=== PATIENT | male | born 1960 | race Caucasian/White ===

== ENCOUNTER 2018-12-21 14:33 | Inpatient (IN) ==
[2018-12-21] MEDS ORDERED: methylPREDNISolone 125 MG/2 ML VIAL IVP ONE (14:55)
[2018-12-21] MEDS ORDERED: Ipratropium/Albuterol Neb 3 ML IH ONE (14:55)
--- NOTE | 2018-12-21 15:09 | Emergency Department Note ---
Disposition Clinical Impression: COPD exacerbation Disposition: Still a Patient Referrals: NONE,PCP [Primary Care Provider] - General Adult HPI - General Chief complaint: ED Shortness of Breath/Dyspnea Stated complaint: SOB Time Seen by Provider: 12/21/18 14:43 Source: patient Limitations: no limitations Nursing Notes Reviewed: Yes Vital Signs Reviewed: Yes - History of Present Illness HPI Narrative: Attestation note I examined this patient and my medical decision-making was reviewed with the Resident Physician/UNDERBASTER/PA. I agree with the documented findings, disposition and treatment plan as described except to the extent set forth below Patient seen with emergency medicine resident Dr. Isidro Jones, please see copy of his note for details of this patient encounter Briefly 58-year-old male smoker COPD comes in with cough fever or shortness of breath has expiratory wheezes cell tachycardic low-grade fever patient was getting sepsis protocol. Triple DuoNeb as well EKG. Chest x-rays as well as other tests. Providing 45 minutes critical care service this patient. Disposition pending Pain Scale: 0 - Related Data Home Medications Medication Instructions Recorded Confirmed Aspirin [Adult Low Dose Aspirin EC] 81 mg PO DAILY 11/06/15 11/06/15 Carvedilol [Coreg] 6.25 mg PO BIDWM 11/06/15 11/06/15 Ranitidine HCl [Zantac] 150 mg PO BID 11/06/15 11/06/15 Simvastatin [Zocor] 20 mg PO HS 11/06/15 11/06/15 amLODIPine [Norvasc] 5 mg PO DAILY 11/06/15 11/06/15 Previous Rx's Medication Instructions Recorded Albuterol Sulfate [Proair 90 mcg IH Q4HR PRN #15 aer.[email or web address] 11/07/15 Respiclick] Budesonide/Formoterol 160/4.5 2 puff IH BIDR #1 hfa.aer.ad 11/07/15 [Symbicort 160/4.5] predniSONE [PredniSONE] 40 mg PO DAILY #3 tablet 11/07/15 Diclofenac Sodium [Voltaren] 50 mg PO Q8HR #30 tablet. 03/04/17 HYDROcodone/Acet 10/325 mg [[place] 1 tab PO Q6HR PRN #20 tab 03/04/17 10-325 mg] Allergies Allergy/AdvReac Type Severity Reaction Status Date / Time No Known Allergies Allergy Verified 03/04/17 03:17 Past Medical History - Past Medical History Medical history: Reports: aortic aneurysm, CHF, COPD, hyperlipidemia, hypertension, valvular heart disease Surgical history: Reports: coronary bypass (CABG), heart valve replacement, pacemaker/AICD Psychiatric history: Reports: no psych history - Social History Smoking Status: Current every day smoker Smokeless Tobacco Status: No Alcohol use: Reports: heavy, recent Drug use: Reports: marijuana Physical Exam - General Limitations: no limitations General appearance: alert, in no apparent distress Course Vital Signs Temperature 98.1 F 12/21/18 14:42 Pulse Rate 86 12/21/18 14:42 Respiratory Rate 28 12/21/18 14:42 Blood Pressure 164/82 12/21/18 14:42 O2 Sat by Pulse Oximetry 90 12/21/18 14:42 Temperature 98.1 F 12/21/18 14:42 Pulse Rate 86 12/21/18 14:42 Respiratory Rate 28 12/21/18 14:42 Blood Pressure 164/82 12/21/18 14:42 O2 Sat by Pulse Oximetry 94 12/21/18 14:59 Oxygen Delivery Oxygen Delivery Room Air
--- NOTE | 2018-12-21 15:11 | Emergency Department Note ---
Disposition Clinical Impression: COPD exacerbation Disposition: Admitted As Inpatient Condition: Fair Referrals: NONE,PCP [Non-Partnered Physician] - Forms: ED Satisfaction Letter Time of Disposition: 17:18 SOB HPI - General Chief Complaint: ED Shortness of Breath/Dyspnea Stated Complaint: SOB Time Seen by Provider: 12/21/18 14:43 Source: patient Mode of arrival: ambulatory Limitations: no limitations Nursing Notes Reviewed: Yes Vital Signs Reviewed: Yes - History of Present Illness 58-year-old male presents to the emergency department with history of COPD as well as open heart surgery and catheterization here for shortness of breath. Patient said this does not feel like his previous heart attacks is only feels a shortness of breath exacerbation. Said he had similar episode approximately 2 weeks ago he is given steroids as well as did breathing treatments felt better. He said this is returned is been no fevers or coughs recently. He is not having any chest pain. Just feels like he is very weak he did try albuterol treatments at home and has had no relief at this time. Otherwise no complaints including fevers, chills, nausea, vomiting, headache, blurry vision, neck pain, back pain, chest pain, abdominal pain, changes in bowel moves come pain with urination pain or tingling going down the arms or legs or generalized weakness. - Related Data Home Medications Medication Instructions Recorded Confirmed Aspirin [Adult Low Dose Aspirin EC] 81 mg PO DAILY 11/06/15 11/06/15 Carvedilol [Coreg] 6.25 mg PO BIDWM 11/06/15 11/06/15 Ranitidine HCl [Zantac] 150 mg PO BID 11/06/15 11/06/15 Simvastatin [Zocor] 20 mg PO HS 11/06/15 11/06/15 amLODIPine [Norvasc] 5 mg PO DAILY 11/06/15 11/06/15 Previous Rx's Medication Instructions Recorded Albuterol Sulfate [Proair 90 mcg IH Q4HR PRN #15 aer.[email or web address] 11/07/15 Respiclick] Budesonide/Formoterol 160/4.5 2 puff IH BIDR #1 hfa.aer.ad 11/07/15 [Symbicort 160/4.5] predniSONE [PredniSONE] 40 mg PO DAILY #3 tablet 11/07/15 Diclofenac Sodium [Voltaren] 50 mg PO Q8HR #30 tablet. 03/04/17 HYDROcodone/Acet 10/325 mg [[place] 1 tab PO Q6HR PRN #20 tab 03/04/17 10-325 mg] Allergies Allergy/AdvReac Type Severity Reaction Status Date / Time No Known Allergies Allergy Verified 03/04/17 03:17 All systems ED: reviewed and negative except as stated. Review of Systems: As Per HPI Past Medical History - Past Medical History Attestation: Yes The following information was validated with the patient. Source: patient Medical history: Reports: aortic aneurysm, CHF, COPD, hyperlipidemia, hyperte nsion, valvular heart disease Surgical history: Reports: coronary bypass (CABG), heart valve replacement, pacemaker/AICD Psychiatric history: Reports: no psych history - Social History Smoking Status: Current every day smoker Smokeless Tobacco Status: No Alcohol use: Reports: heavy, recent Drug use: Reports: marijuana Physical Exam - General Limitations: no limitations General appearance: alert, in no apparent distress - Head Head exam: atraumatic, normocephalic, normal inspection - Eye Eye exam: Present: normal appearance, PERRL, EOMI - ENT ENT exam: normal exam, normal oropharynx, mucous membranes moist - Neck Neck exam: Present: normal inspection, full ROM, trachea midline - Chest Chest inspection: Present: normal inspection, symmetric chest wall rise - Respiratory Respiratory exam: Present: wheezes, prolonged expiratory phase. Absent: respiratory distress, stridor, accessory muscle use - Cardiovascular Cardiovascular exam: Present: regular rate, normal rhythm, normal heart sounds - Abdominal Exam Abdominal exam: Present: soft, Non-Tender. Absent: tenderness, distention, guarding, rebound, rigidity - Extremities Exam Extremities exam: Present: normal inspection, full ROM. Absent: tenderness, pedal edema - Expanded Lower Extremity Exam Neurovascular/Tendon exam: Absent: motor deficit, sensory deficit, tendon deficit - Back Exam Back exam: Present: normal inspection, full ROM. Absent: tenderness, CVA tenderness (R), CVA tenderness (L) - Neurological Exam Neurological exam: Present: alert, oriented X3 - Skin Skin exam: Present: warm, dry, intact, normal color Course Course Narrative: We have basic labs including CBC, BMP we will also get 2 view chest x-ray we will give patient triple DuoNeb treatment as well as Solu-Medrol. We will see troponin EKG. Patient care this plan. Disposition is pending results. Patient does not follow with pulmonology this time primary care physician manages COPD Vital Signs Temperature 98.1 F 12/21/18 14:42 Pulse Rate 86 12/21/18 14:42 Respiratory Rate 28 12/21/18 14:42 Blood Pressure 164/82 12/21/18 14:42 O2 Sat by Pulse Oximetry 90 12/21/18 14:42 Temperature 98.1 F 12/21/18 14:42 Pulse Rate 81 12/21/18 16:00 Respiratory Rate 22 12/21/18 16:00 Blood Pressure 137/77 12/21/18 16:00 O2 Sat by Pulse Oximetry 94 12/21/18 16:00 Oxygen Delivery Oxygen Delivery Aerosol Mask Shortness of Breath/Dyspnea - MDM Narrative Medical decision making narrative: Patient's chest x-ray did not show any acute findings labs did not show any acute findings. DuoNeb did help with his breathing but he is still hypoxic. We did do a walk test on the patient where he just walked approximate 10 feet and was short of breath and his pulse ox dropped down to 84%. I think patient may be on the verge of needing oxygen at home. Patient did receive Solu-Medrol as well as triple DuoNeb treatment here. Patient needs to be admitted to the hospitalist and family does agree. I spoke with the hospitalist Dr. Bradley who agreed to admit the patient to their service. Patient admitted in stable condition. Chest X-Ray 12/21/18 14:55 IMPRESSION: No acute process. D/ / Aldo Painting MD / Aldo Painting MD Interpreting Provider: Aldo Painting MD - Medical Records Medical records reviewed: Yes I reviewed the patient's medical records. - Lab Data Lab results reviewed: Yes I reviewed the patient's lab results. Result diagrams: 12/21/18 15:02 12/21/18 15:02 Lab Results 12/21/18 12/21/18 12/21/18 Range/Units 15:02 15:02 15:02 WBC 11.6 H (4.3-11.1) K/mcL RBC 5.16 (4.19-5.50) M/mcL Hgb 16.1 (12.9-16.9) g/dL Hct 47.3 (37.5-50.1) % MCV 91.7 (83.0-100.0) fL MCH 31.2 (28.0-33.3) pg MCHC 34.0 (31.6-35.5) g/dL RDW 12.9 (11.5-14.5) % Plt Count 183 (140-400) K/mcL MPV 8.9 L (9.4-12.4) fL Immature Gran % 0.3 (0-4) % Seg Neutrophils % 70.4 % Lymphocytes % 20.2 % Monocytes % 5.8 % Eosinophils % 2.5 % Basophils % 0.8 % Neutrophils # 8.2 (1.6-8.9) K/mcL Lymphocytes # 2.4 (0.6-4.6) K/mcL Monocytes # 0.7 (0.0-1.3) K/mcL Eosinophils # 0.3 (0.0-0.6) K/mcL Basophils # 0.1 (0.0-0.2) K/mcL Sodium 137 (136-145) mEq/L Potassium 3.9 (3.5-5.1) mEq/L Chloride 104 (98-107) mEq/L Carbon Dioxide 24 (23-29) mEq/L BUN 9 (6-20) mg/dL Creatinine 0.81 (0.70-1.30) mg/dL Est GFR ( Amer) > 60 (> 60) Est GFR (Non-Af Amer) > 60 (> 60) BUN/Creatinine Ratio 11 (6-26) Glucose 147 H (70-105) mg/dL Calculated Osmolality 285 (280-300) Lactic Acid (0.5-2.2) mmol/L Calcium 9.3 (8.6-10.3) mg/dL Troponin I < 0.03 (< 0.04) ng/mL B-Natriuretic Peptide 106 H (Less than 100) pg/mL 12/21/18 Range/Units 15:20 WBC (4.3-11.1) K/mcL RBC (4.19-5.50) M/mcL Hgb (12.9-16.9) g/dL Hct (37.5-50.1) % MCV (83.0-100.0) fL MCH (28.0-33.3) pg MCHC (31.6-35.5) g/dL RDW (11.5-14.5) % Plt Count (140-400) K/mcL MPV (9.4-12.4) fL Immature Gran % (0-4) % Seg Neutrophils % % Lymphocytes % % Monocytes % % Eosinophils % % Basophils % % Neutrophils # (1.6-8.9) K/mcL Lymphocytes # (0.6-4.6) K/mcL Monocytes # (0.0-1.3) K/mcL Eosinophils # (0.0-0.6) K/mcL Basophils # (0.0-0.2) K/mcL Sodium (136-145) mEq/L Potassium (3.5-5.1) mEq/L Chloride (98-107) mEq/L Carbon Dioxide (23-29) mEq/L BUN (6-20) mg/dL Creatinine (0.70-1.30) mg/dL Est GFR ( Amer) (> 60) Est GFR (Non-Af Amer) (> 60) BUN/Creatinine Ratio (6-26) Glucose (70-105) mg/dL Calculated Osmolality (280-300) Lactic Acid 1.4 (0.5-2.2) mmol/L Calcium (8.6-10.3) mg/dL Troponin I (< 0.04) ng/mL B-Natriuretic Peptide (Less than 100) pg/mL - Radiology Data Radiology results reviewed: Yes I reviewed the patient's radiology results. - EKG Data EKG attestation: Yes I reviewed and interpreted this EKG. EKG results narrative: EKG done at 1456 review myself and attending shows sinus the paced rhythm at a rate of 85, ME able 196, QRS 111, QTC 554. No acute ST changes no acute T-wave changes no signs of ischemia. No signs of hypertrophy, harsh and, heart block. No debris. Abuse undergo/HOCM. Otherwise unchanged EKG when compared with old one done 11/06/15
[2018-12-21 15:12] LABS: Basophils # 0.1 K/mcL (0.0-0.2); Basophils % 0.8 %; Eosinophils # 0.3 K/mcL (0.0-0.6); Eosinophils % 2.5 %; Hematocrit 47.3 % (37.5-50.1); Hemoglobin 16.1 g/dL (12.9-16.9); Immature Granulocytes % 0.3 % (0-4); Lymphocytes # 2.4 K/mcL (0.6-4.6); Lymphocytes % 20.2 %; Mean Corpuscular Hemoglobin 31.2 pg (28.0-33.3); Mean Corpuscular Volume 91.7 fL (83.0-100.0); Mean Platelet Volume 8.9 fL (9.4-12.4); Monocytes # 0.7 K/mcL (0.0-1.3); Monocytes % 5.8 %; Neutrophils # 8.2 K/mcL (1.6-8.9); Platelet Count 183 K/mcL (140-400); Red Blood Count 5.16 M/mcL (4.19-5.50); Red Cell Distribution Width 12.9 % (11.5-14.5); Segmented Neutrophils % 70.4 %
[2018-12-21 15:36] LABS: BUN/Creatinine Ratio 11 (6-26); Blood Urea Nitrogen 9 mg/dL (6-20); Calcium 9.3 mg/dL (8.6-10.3); Carbon Dioxide 24 mEq/L (23-29); Chloride 104 mEq/L (98-107); Glucose 147 mg/dL (70-105); Osmolality,Calculated 285 (280-300); Potassium 3.9 mEq/L (3.5-5.1); Sodium 137 mEq/L (136-145); eGFR For Non-African Americans > 60 (> 60)
[2018-12-21 15:37] LABS: Troponin I < 0.03 ng/mL (< 0.04)
--- NOTE | 2018-12-21 17:44 | Internal Med History&Physical ---
<Richard Nelson - Last Filed: 12/21/18 17:41> Date of Encounter: 12/21/18 Time of Encounter: 17:42 Internal Medicine - H&P: HPI Chief complaint: Shortness of breath Admitted From: Emergency Dept Plans for Post Hospital Care: Home History of present illness: Mr. Phipps is a 58 year old male with history of coronary artery disease, aortic aneurysm and COPD presents with chief complaint of shortness of breath. Patient reports on December 01 he was diagnosed with COPD exacerbation by his PCP and given azithromycin as well as a steroid taper for 11 days. His symptoms of shortness of breath, cough improved while on this regimen however once he completed a history taper his shortness of breath worsened. He reports today his oxygen at home was 86 6%. He has been having increasing cough, sputum production. He does report being around grandchildren that have had a upper respiratory infection recently. He denies fevers, chills, headache, chest pain, palpitations, nausea, vomiting, diarrhea, dysuria, lower extremity pain he does report dizziness when his oxygen saturation decreases. Patient does not use oxygen at home. 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 His only COPD treatment at home as as needed rescue albuterol inhaler. Past Med Surg Social Fam HX - Past Medical History Medical history: aortic aneurysm, CHF, COPD, hyperlipidemia, hypertension, valvular heart disease Additional medical history: pacer Psychiatric history: no psych history - Past Surgical History Surgical History: coronary bypass (CABG), heart valve replacement, pacemaker/AICD - Social History Smoking Status: Current every day smoker Smokeless Tobacco Status: No Alcohol use: heavy, recent Drug use: marijuana - Additional Family History Additional family history: Family history noncontributory. Internal Medicine - H&P: Meds Aspirin [Adult Low Dose Aspirin EC] 81 mg PO DAILY 11/06/15 [History] Carvedilol [Coreg] 6.25 mg PO BIDWM 11/06/15 [History] Ranitidine HCl [Zantac] 150 mg PO BID 11/06/15 [History] Simvastatin [Zocor] 20 mg PO HS 11/06/15 [History] amLODIPine [Norvasc] 5 mg PO DAILY 11/06/15 [History] Albuterol Sulfate [Proair Respiclick] 90 mcg IH Q4HR PRN #15 aer.pow.ba 11/07/15 [Rx] Albuterol Neb [Proventil Neb] 2.5 mg IH Q6H 12/21/18 [History] Allergy/AdvReac Type Severity Reaction Status Date / Time No Known Allergies Allergy Verified 03/04/17 03:17 All Systems PM: A 10-system review of systems was performed and is negative for pertinent findings except as documented above in the HPI. Review of systems: Constitutional: Denies fever, chills HEENT: Denies headache, trauma, blurry vision, eye discharge, ear pain, ear discharge neck pain, sore throat, rhinorrhea Heart: Denies chest pain palpitations, LE edema Lungs: As per history of present illness Abdomen: Denies abdominal pain nausea vomiting diarrhea MSK: Denies back pain, falls, joint pain Kidney: Denies dysuria, hematuria Skin: Denies rash, ulcers Neuro: Denies numbness and tingling Psych: denies axniety, depression - Constitutional Vitals: Temp Pulse Resp BP Pulse Ox 98.1 F 81 22 137/77 94 12/21/18 14:42 12/21/18 16:00 12/21/18 16:00 12/21/18 16:00 12/21/18 16:00 Exam: General: pleasant, without distress HEENT: Head atraumatic, normocephalic, EOMI, PERRL, absent ear discharge or trauma, Moist Mucous Membranes, uvula midline Neck: nontender to palpation, absent lymphadenopathy, Cardiovascualr: Regular rate and rhythm with no murmur, absent gallops or rubs, absent pedal edema, radial pulses 2 out of 4 Lungs: Diminished breath sounds bilaterally with and expiratory wheezing Abdomen: Soft nontender, nondistended positive bowel sounds, absent hepatomegaly Skin: warm and dry, absent rash, absent open wounds and nodules MSK: absent clubbing, cyanosis, joints without swelling Neuro: Cranial nerves II through XII intact, UE and LE sensation equal bilat erally, UE and LEstrength 5/5, alert oriented 3, Psych: good insight and judgment Internal Med - H&P Results - Labs CBC & Chem 7: 12/21/18 15:02 12/21/18 15:02 Labs: Short CBC 12/21/18 Range/Units 15:02 WBC 11.6 H (4.3-11.1) K/mcL Hgb 16.1 (12.9-16.9) g/dL Hct 47.3 (37.5-50.1) % Plt Count 183 (140-400) K/mcL Neutrophils # 8.2 (1.6-8.9) K/mcL BMP 12/21/18 15:02 Sodium 137 Potassium 3.9 Chloride 104 Carbon Dioxide 24 BUN 9 Creatinine 0.81 Glucose 147 H Calcium 9.3 Cardiac Enzymes 12/21/18 Range/Units 15:02 Troponin I < 0.03 (< 0.04) ng/mL - Impressions ITS Impressions Chest X-Ray 12/21/18 14:55 IMPRESSION: No acute process. D/ / Aldo Painting MD / Aldo Painting MD Interpreting Provider: Aldo Painting MD - Assessment and Plan (1) Acute respiratory failure with hypoxia Current Visit: Yes Status: Acute Assessment and plan: Secondary to COPD exacerbation Patient requiring 4 L oxygen supplementation. At home he is not on oxygen Chest x-ray is within normal limits Laboratory shows WBC of 11.6. Troponin less than 0.03. We will continue oxygen supplementation, IV steroids and doxycycline 100 mg twice a day. On discharge patient will need pulmonology referral. (2) Acute exacerbation of chronic obstructive airways disease Current Visit: Yes Status: Acute Assessment and plan: Plan as above. Patient is started on doxycycline as fluoroquinolones are advised not to be giv en to patients who have a history of coronary disease (3) Coronary artery disease Current Visit: Yes Status: Chronic Assessment and plan: Patient has a history of coronary disease He status post CABG in 2006 and 2010 Currently he denies chest pain His troponins negative 1 We will continue his home medications of simvastatin, aspirin, carvedilol. Qualifiers: Coronary Disease-Associated Artery/Lesion type: bypass graft [place] vs. transplanted heart: [place] heart Associated angina: without angina Qualified Code(s): I25.810 - Atherosclerosis of coronary artery bypass graft(s) without angina pectoris (4) Hyperlipidemia Current Visit: Yes Status: Chronic Assessment and plan: Continue home medication of simvastatin. Qualifiers: Hyperlipidemia type: pure hypercholesterolemia Qualified Code(s): E78.00 - Pure hypercholesterolemia, unspecified; E78.0 - Pure hypercholesterolemia (5) Status post aortic valve replacement Current Visit: Yes Status: Chronic (6) Hypertension Current Visit: Yes Status: Chronic Assessment and plan: Continue amlodipine. Qualifiers: Hypertension type: essential hypertension Qualified Code(s): I10 - Essential (primary) hypertension - Time Spent With Patient Total time spent is greater than 50% in coordination of care (as documented) at patient's floor/unit and/or counseling patient: <Ruben Fernández - Last Filed: 12/22/18 19:10> Date of Encounter: 12/22/18 Internal Medicine - H&P: HPI History of present illness: Mr. Phipps is a 58 year old male Past Med Surg Social Fam HX - Family History Father Hx Family Endocrine Disorder: Yes (Diabetes) Mother Living Status: Cause of : Cancer (unknown) Hx Family GI Disorders: Yes (Liver Disease) All Systems PM: A 10-system review of systems was performed and is negative for pertinent findings except as documented above in the HPI. - Constitutional Vitals: Temp Pulse Resp BP Pulse Ox 97.7 F 78 19 147/71 92 12/22/18 15:48 12/22/18 15:48 12/22/18 15:48 12/22/18 15:48 12/22/18 15:48 Internal Med - H&P Results - Labs CBC & Chem 7: 12/22/18 03:14 12/21/18 15:02 Labs: Short CBC 12/22/18 Range/Units 03:14 WBC 6.9 (4.3-11.1) K/mcL Hgb 16.0 (12.9-16.9) g/dL Hct 47.2 (37.5-50.1) % Plt Count 170 (140-400) K/mcL Neutrophils # 5.7 (1.6-8.9) K/mcL - Impressions ITS Impressions Chest X-Ray 12/21/18 14:55 IMPRESSION: No acute process. D/ / Aldo Painting MD / Aldo Painting MD Interpreting Provider: Aldo Painting MD - Time Spent With Patient Total time spent is greater than 50% in coordination of care (as documented) at patient's floor/unit and/or counseling patient:
[2018-12-21] MEDS ORDERED: MethylPREDNISolone 40 MG/ML VIAL IVP SCH (18:00)
[2018-12-21] MEDS: Ipratropium/Albuterol Neb 3 ML IH SCH ×2 (18:05→22:15)
[2018-12-21] MEDS: Famotidine 20 MG TABLET PO SCH (20:08)
[2018-12-21] MEDS: Doxycycline 100 MG CAPSULE PO SCH (20:08)
[2018-12-21] MEDS: *HR* Heparin 5,000 UNIT/ML VIAL SQ SCH (21:33)
[2018-12-21] MEDS: Budesonide/Formoterol 160/4.5 1 PUFF INH IH SCH (22:15)
[2018-12-22] MEDS: MethylPREDNISolone 40 MG/ML VIAL IVP SCH ×5 (02:28→21:38)
[2018-12-22] MEDS: Ipratropium/Albuterol Neb 3 ML IH SCH ×4 (04:11→23:25)
[2018-12-22 04:26] LABS: Hematocrit 47.2 % (37.5-50.1); Mean Corpuscular HGB Conc 33.9 g/dL (31.6-35.5); Mean Corpuscular Hemoglobin 31.4 pg (28.0-33.3); Mean Corpuscular Volume 92.7 fL (83.0-100.0); Mean Platelet Volume 9.1 fL (9.4-12.4); Monocytes # 0.1 K/mcL (0.0-1.3); Platelet Count 170 K/mcL (140-400); Red Blood Count 5.09 M/mcL (4.19-5.50); Red Cell Distribution Width 12.7 % (11.5-14.5)
[2018-12-22 04:55] LABS: Basophils # 0.1 K/mcL (0.0-0.2); Neutrophils # 5.7 K/mcL (1.6-8.9); Platelet Estimate Normal (Normal)
[2018-12-22] MEDS: *HR* Heparin 5,000 UNIT/ML VIAL SQ SCH ×4 (05:48→21:38)
[2018-12-22] MEDS: amLODIPine 5 MG TABLET PO SCH (08:08)
[2018-12-22] MEDS: Doxycycline 100 MG CAPSULE PO SCH ×2 (08:08→21:38)
[2018-12-22] MEDS: Famotidine 20 MG TABLET PO SCH ×2 (08:09→21:38)
--- NOTE | 2018-12-22 09:16 | Internal Med Progress Note ---
<Nessa Narayan - Last Filed: 12/22/18 16:04> Hospitalist Progress Note - Encounter Date of Encounter: 12/22/18 Time of Encounter: 10:00 - Subjective Interval History: Patient states he feels better this morning. He does not use oxygen at home and is still oxygenating on 5L O2 per NC. At rest he denies shortness of breath how ever complains of significant shortness of breath and increased wheezing with exertion. Duonebs help. Denies chest pain, chills, nausea, vomiting, abdominal pain, or any other complaints. - Exam Vitals: Temp Pulse Resp BP Pulse Ox 97.6 F 81 18 156/80 93 12/22/18 07:35 12/22/18 07:35 12/22/18 07:35 12/22/18 07:35 12/22/18 08:17 Exam: General: sitting on edge of bed with no acute distress HEENT: atraumatic, normocephalic, oral mucosa moist, normal conjunctiva Cardiac: regular rate and rhythm, no murmur Lungs: Diminished breath sounds bilaterally with L>R expiratory wheezing and rales Abdomen: soft, nontender, nondistended MSK: No lower extremity swelling, normal capillary refill, no calf tenderness Neuro: AAOx3, CNII-XII intact Psych: normal mood and affect Skin: warm, dry, intact - Assessment and Plan (1) Acute respiratory failure with hypoxia Current Visit: Yes Status: Acute Assessment and Plan: Secondary to COPD exacerbation Patient requiring 4-5 L oxygen supplementation. Not on oxygen at home Failed outpatient treatment Chest x-ray with no acute cardiopulmonary process WBC normalized. Troponin less than 0.03. Continue oxygen supplementation, IV steroids and doxycycline 100 mg twice a day. On discharge patient will need pulmonology referral. (2) Acute exacerbation of chronic obstructive airways disease Current Visit: Yes Status: Acute Assessment and Plan: Plan as above. Day 2 doxycycline Patient is started on doxycycline as fluoroquinolones are advised not to be given to patients who have a history of coronary disease (3) Coronary artery disease Current Visit: Yes Status: Chronic Assessment and Plan: S/p CABG in 2006 and 2010 Troponin negative, no acute ischemic changes on EKG Continue simvastatin, aspirin, carvedilol. (4) Hyperlipidemia Current Visit: Yes Status: Chronic Assessment and Plan: Continue simvastatin (5) Status post aortic valve replacement Current Visit: Yes Status: Chronic (6) Hypertension Current Visit: Yes Status: Chronic Assessment and Plan: Stable Continue amlodipine DVT Prophylaxis: Subq heparin - Time Spent with Patient Total time spent is greater than 50% in coordination of care (as documented) at patient's floor/unit and/or counseling patient: Internal Medicine: Result - Labs CBC & Chem 7: 12/22/18 03:14 12/21/18 15:02 Labs: Short CBC 12/21/18 12/22/18 Range/Units 15:02 03:14 WBC 11.6 H 6.9 (4.3-11.1) K/mcL Hgb 16.1 16.0 (12.9-16.9) g/dL Hct 47.3 47.2 (37.5-50.1) % Plt Count 183 170 (140-400) K/mcL Neutrophils # 8.2 5.7 (1.6-8.9) K/mcL BMP 12/21/18 15:02 Sodium 137 Potassium 3.9 Chloride 104 Carbon Dioxide 24 BUN 9 Creatinine 0.81 Glucose 147 H Calcium 9.3 Cardiac Enzymes 12/21/18 Range/Units 15:02 Troponin I < 0.03 (< 0.04) ng/mL - Impressions Impressions Chest X-Ray 12/21/18 14:55 IMPRESSION: No acute process. D/ / Aldo Painting MD / Aldo Painting MD Interpreting Provider: Aldo Painting MD Consult Discharge Plan - Plan Referrals: Lauryn Rogers MD [Primary Care Provider] - 12/29/18 10:00 am <Ruben Fernández - Last Filed: 12/22/18 19:10> Hospitalist Progress Note - Encounter Date of Encounter: 12/22/18 - Exam Vitals: Temp Pulse Resp BP Pulse Ox 97.7 F 78 19 147/71 92 12/22/18 15:48 12/22/18 15:48 12/22/18 15:48 12/22/18 15:48 12/22/18 15:48 - Time Spent with Patient Total time spent is greater than 50% in coordination of care (as documented) at patient's floor/unit and/or counseling patient: Internal Medicine: Result - Labs CBC & Chem 7: 12/22/18 03:14 12/21/18 15:02 Labs: Short CBC 12/22/18 Range/Units 03:14 WBC 6.9 (4.3-11.1) K/mcL Hgb 16.0 (12.9-16.9) g/dL Hct 47.2 (37.5-50.1) % Plt Count 170 (140-400) K/mcL Neutrophils # 5.7 (1.6-8.9) K/mcL - Attending Attestation I examined this patient and my medical decision-making was reviewed with the Resident Physician. I agree with the documented findings, disposition and treatment plan as described except to the extent set forth below. <Nessa Narayan - Last Filed: 12/22/18 16:04> (3) Coronary artery disease Qualifiers: Coronary Disease-Associated Artery/Lesion type: bypass graft [place] vs. transplanted heart: [place] heart Associated angina: without angina Qualified Code(s): I25.810 - Atherosclerosis of coronary artery bypass graft(s) without angina pectoris (4) Hyperlipidemia Qualifiers: Hyperlipidemia type: pure hypercholesterolemia Qualified Code(s): E78.00 - Pure hypercholesterolemia, unspecified; E78.0 - Pure hypercholesterolemia (6) Hypertension Qualifiers: Hypertension type: essential hypertension Qualified Code(s): I10 - Essential (primary) hypertension
[2018-12-22] MEDS: Aspirin Enteric Coated 81 MG Tablet PO SCH (09:36)
[2018-12-22] MEDS: Budesonide/Formoterol 160/4.5 1 PUFF INH IH SCH ×2 (09:46→23:24)
[2018-12-22] MEDS ORDERED: *HR* LORazepam 2 MG/ML VIAL IVP PRN ×3 (11:21)
[2018-12-23] MEDS: MethylPREDNISolone 40 MG/ML VIAL IVP SCH ×4 (02:46→20:28)
[2018-12-23] MEDS: Ipratropium/Albuterol Neb 3 ML IH SCH ×4 (04:07→23:32)
[2018-12-23] MEDS: *HR* Heparin 5,000 UNIT/ML VIAL SQ SCH ×3 (05:38→21:31)
[2018-12-23] MEDS: Doxycycline 100 MG CAPSULE PO SCH ×2 (08:08→20:28)
[2018-12-23] MEDS: Aspirin Enteric Coated 81 MG Tablet PO SCH (08:08)
[2018-12-23] MEDS: Famotidine 20 MG TABLET PO SCH ×2 (08:08→20:28)
[2018-12-23] MEDS: amLODIPine 5 MG TABLET PO SCH (08:08)
[2018-12-23] MEDS: Budesonide/Formoterol 160/4.5 1 PUFF INH IH SCH ×2 (09:23→23:32)
--- NOTE | 2018-12-23 10:16 | Internal Med Progress Note ---
<Richard Nelson - Last Filed: 12/23/18 14:25> Hospitalist Progress Note - Encounter Date of Encounter: 12/23/18 Time of Encounter: 14:25 - Subjective Interval History: No acute events overnight. Patient reports shortness of breath is improved but not back to baseline. He still gets has exertional dyspnea when going to the bathroom. He is on 3 l of oxygen this morning. This is down from 5 L. He does not have any chest pain, abdominal pain, nausea, vomiting, diarrhea, lower extremity edema. He is tolerating his diet. - Exam Vitals: Temp Pulse Resp BP Pulse Ox 97.6 F 60 16 125/70 92 12/23/18 07:28 12/23/18 07:28 12/23/18 07:28 12/23/18 07:28 12/23/18 07:28 Exam: GGeneral: pleasant, without distress Cardiovascualr: Regular rate and rhythm with no murmur, absent gallops or rubs, absent pedal edema, radial pulses 2 out of 4 Lungs: Bilateral wheezing, diminished not in respiratory distress Abdomen: Soft nontender, nondistended positive bowel sounds, absent hepatomegaly Skin: warm and dry, absent rash, absent open wounds and nodules MSK: absent clubbing, cyanosis, joints without swelling Neuro: Alert oriented 3, no focal deficits Psych: good insight and judgment - Assessment and Plan (1) Acute respiratory failure with hypoxia Current Visit: Yes Status: Acute Assessment and Plan: Secondary to COPD exacerbation Improving. Patient requiring 4 L oxygen supplementation. At home he is not on oxygen Chest x-ray is within normal limits Laboratory shows WBC of 11.6. Troponin less than 0.03. continue oxygen supplementation, IV steroids and doxycycline 100 mg twice a day. Patient will have 5 day course of antibiotic therapy. On discharge patient will need pulmonology referral. (2) Acute exacerbation of chronic obstructive airways disease Current Visit: Yes Status: Acute Assessment and Plan: plan as above. on doxycycline as fluoroquinolones are advised not to be given to patients who have a history of coronary disease (3) Coronary artery disease Current Visit: Yes Status: Chronic Assessment and Plan: Patient has a history of coronary disease He status post CABG in 2006 and 2010 Currently he denies chest pain His troponins negative 1 We will continue his home medications of simvastatin, aspirin, carvedilol. (4) Hyperlipidemia Current Visit: Yes Status: Chronic Assessment and Plan: Continue home medication of simvastatin. (5) Status post aortic valve replacement Current Visit: Yes Status: Chronic (6) Hypertension Current Visit: Yes Status: Chronic Assessment and Plan: Continue amlodipine. DVT Prophylaxis: Subq heparin - Time Spent with Patient Total time spent is greater than 50% in coordination of care (as documented) at patient's floor/unit and/or counseling patient: Internal Medicine: Result - Labs CBC & Chem 7: 12/22/18 03:14 12/21/18 15:02 Consult Discharge Plan - Plan Referrals: Lauryn Rogers MD [Primary Care Provider] - 12/29/18 10:00 am <Ruben Fernández - Last Filed: 12/23/18 19:32> Hospitalist Progress Note - Encounter Date of Encounter: 12/23/18 - Exam Vitals: Temp Pulse Resp BP Pulse Ox 97.5 F L 72 18 161/77 90 12/23/18 16:21 12/23/18 16:21 12/23/18 16:21 12/23/18 16:21 12/23/18 16:21 - Time Spent with Patient Total time spent is greater than 50% in coordination of care (as documented) at patient's floor/unit and/or counseling patient: Internal Medicine: Result - Labs CBC & Chem 7: 12/22/18 03:14 12/21/18 15:02 - Attending Attestation I examined this patient and my medical decision-making was reviewed with the Resident Physician. I agree with the documented findings, disposition and treatment plan as described except to the extent set forth below. <Richard Nelson - Last Filed: 12/23/18 14:25> (3) Coronary artery disease Qualifiers: Coronary Disease-Associated Artery/Lesion type: bypass graft [place] vs. transplanted heart: [place] heart Associated angina: without angina Qualified Code(s): I25.810 - Atherosclerosis of coronary artery bypass graft(s) without angina pectoris (4) Hyperlipidemia Qualifiers: Hyperlipidemia type: pure hypercholesterolemia Qualified Code(s): E78.00 - Pure hypercholesterolemia, unspecified; E78.0 - Pure hypercholesterolemia (6) Hypertension Qualifiers: Hypertension type: essential hypertension Qualified Code(s): I10 - Essential (primary) hypertension
[2018-12-24] MEDS: MethylPREDNISolone 40 MG/ML VIAL IVP SCH ×2 (02:07→08:00)
[2018-12-24] MEDS: amLODIPine 5 MG TABLET PO SCH ×2 (04:10→08:01)
[2018-12-24] MEDS: Ipratropium/Albuterol Neb 3 ML IH SCH ×4 (04:36→23:16)
[2018-12-24] MEDS: *HR* Heparin 5,000 UNIT/ML VIAL SQ SCH ×3 (05:53→21:09)
[2018-12-24] MEDS: Aspirin Enteric Coated 81 MG Tablet PO SCH (08:00)
[2018-12-24] MEDS: Famotidine 20 MG TABLET PO SCH ×2 (08:00→21:09)
[2018-12-24] MEDS: Doxycycline 100 MG CAPSULE PO SCH ×2 (08:00→21:09)
[2018-12-24] MEDS: Budesonide/Formoterol 160/4.5 1 PUFF INH IH SCH ×2 (10:03→23:17)
--- NOTE | 2018-12-24 10:10 | Pulmonology Consult Note ---
<Joana Hurtado - Last Filed: 12/24/18 13:17> Date of Encounter: 12/24/18 Time of Encounter: 08:45 Assessment and Plan (1) Acute respiratory failure with hypoxia Current Visit: Yes Status: Acute Secondary to COPD exacerbation Chest x-ray does not show any acute abnormalities. Requiring supplemental oxygen could be secondary due to the COPD exacerbation. May require 6 minute walk test if continues to require supplemental oxygen. Complete antibiotic regimen for 5 days to cover community-acquired pneumonia. Will require long steroid taper Follow-up patient with pulmonology (2) COPD exacerbation Current Visit: Yes Status: Acute History Moise is a 58-year-old male who presented to the ED complaining of shortness of breath has history of COPD. Likely COPD exacerbation after recent exposure to URI from his grandchildren. Had completed azithromycin and steroid taper at home prior to presentation. At presentation was requiring supplemental oxygen to have saturation above 88%. Currently has diffuse wheezing in all lung lobes. Would recommend titrating oxygen to keep saturation above 88%. The leukocytosis could be secondary due to recent steroid use. Due to productive cough should treat for community acquired pneumonia. Complete 5 day course of antibiotic regimen. Continue DuoNeb, Symbicort Titrate steroids Recommend steroid taper with 40 mg for 3 days, 30 mg daily days, 20 mg for 3 days, 10 mg for 3 days Follow-up patient with pulmonology History of Present Illness Consult date: 12/24/18 Requesting physician: Richard Nelson Reason for consult: dyspnea History of present illness: Mr. Phipps is a 58-year-old male with past medical history of COPD, aortic aneurysm, CAD who presented to the ED complaining of shortness of breath. He reports diagnosis of COPD since 2010 but lost follow-up due to insurance issues. He does not have inhalers at home other than a rescue albuterol inhaler. He reports his penis PCP gave him azithromycin and a steroid taper which she started taking December 01 and had no improvement. In the ED he was noted to have oxygen saturation of 84% with us 10 feet walk. At presentation he also complained of cough with sputum production. Had recent exposure to upper respiratory infection while being around his grandchildren. She denied fever, chills, chest pain, nausea, emesis, lower extremity edema. Past Med Surg Social Fam HX - Past Medical History Medical history: aortic aneurysm, CHF, COPD, hyperlipidemia, hypertension, valvular heart disease Additional medical history: pacer Psychiatric history: no psych history - Past Surgical History Surgical History: heart valve replacement, pacemaker/AICD - Social History Smoking Status: Current every day smoker Packs per day: 0.5 Smokeless Tobacco Status: No Alcohol use: heavy, recent Drug use: marijuana - Family History Father Hx Family Endocrine Disorder: Yes (Diabetes) Mother Living Status: Cause of : Cancer (unknown) Hx Family GI Disorders: Yes (Liver Disease) Medications and Allergies RX: Aspirin [Adult Low Dose Aspirin EC] 81 mg PO DAILY 11/06/15 [History] RX: Carvedilol [Coreg] 6.25 mg PO BIDWM 11/06/15 [History] RX: Ranitidine HCl [Zantac] 150 mg PO BID 11/06/15 [History] RX: Simvastatin [Zocor] 20 mg PO HS 11/06/15 [History] RX: amLODIPine [Norvasc] 5 mg PO DAILY 11/06/15 [History] RX: Albuterol Sulfate [Proair Respiclick] 90 mcg IH Q4HR PRN #15 [email or web address] 11/07/15 [Rx] Albuterol Neb [Proventil Neb] 2.5 mg IH Q6H 12/21/18 [History] Allergy/AdvReac Type Severity Reaction Status Date / Time No Known Allergies Allergy Verified 03/04/17 03:17 All Systems: The remainder of the systems were reviewed and are negative - Constitutional Constitutional: no chills, no fever(s), no headache(s), no weakness - Cardiovascular Cardiovascular: dyspnea, dyspnea on exertion, no chest pain, no chest pain at rest, no chest pain with activity, no edema, no orthopnea, no palpitations, no paroxysmal nocturnal dyspnea - Respiratory Respiratory: cough, dyspnea, wheezing, no pain on inspirtation, no chest congestion - Gastrointestinal Gastrointestinal: no abdominal pain, no diarrhea, no vomiting - Musculoskeletal Musculoskeletal: no weakness, no myalgias - Integumentary Integumentary: no erythema, no rash - Psychiatric Psychiatric: no anxiety, no depression - Hematologic/Lymphatic Hematologic/Lymphatic: no easy bleeding, no easy bruising Physical Examination Vital Signs: Vital Signs, Last 4 Hours Temp Pulse Resp BP Pulse Ox 12/24/18 07:19 98.6 F 60 18 170/81 93 General appearance: no acute distress, alert Eyes: nonicteric ENT: oropharynx moist Neck: supple Auscultation: bilateral: wheezes (All lung lobes) Gastrointestinal: normoactive bowel sounds, soft, non-tender, non-distended Integumentary: normal Extremities: no cyanosis, no edema Musculoskeletal: no deformities normal mental status, pupils equal and round mood appropriate, affect normal Results - Laboratory Findings CBC and BMP: 12/22/18 03:14 12/21/18 15:02 Abnormal lab findings: Abnormal lab results MPV 9.1 fL (9.4-12.4) L 12/22/18 03:14 Glucose 147 mg/dL (70-105) H 12/21/18 15:02 B-Natriuretic Peptide 106 pg/mL (Less than 100) H 12/21/18 15:02 - Clinical Findings Intake & Output: Intake & Output 12/23/18 12/24/18 12/24/18 23:59 07:59 15:59 Intake Total 240 / 240 Balance 240 / 240 Weight 106.9 kg Consult Discharge Plan - Plan Referrals: Rashawn Russell MD [Partnered Physician] - 01/01/19 3:30 pm Lauryn Rogers MD [Primary Care Provider] - 12/29/18 10:00 am <Rashawn Russell - Last Filed: 12/24/18 14:48> Date of Encounter: 12/24/18 All Systems: The remainder of the systems were reviewed and are negative Physical Examination Vital Signs: Vital Signs, Last 4 Hours Pulse Resp BP Pulse Ox 12/24/18 11:52 61 18 142/70 90 Results - Laboratory Findings CBC and BMP: 12/22/18 03:14 12/21/18 15:02 Abnormal lab findings: Abnormal lab results MPV 9.1 fL (9.4-12.4) L 12/22/18 03:14 Glucose 147 mg/dL (70-105) H 12/21/18 15:02 B-Natriuretic Peptide 106 pg/mL (Less than 100) H 12/21/18 15:02 - Clinical Findings Intake & Output: Intake & Output 12/23/18 12/24/18 12/24/18 23:59 07:59 15:59 Intake Total 240 / 240 Balance 240 / 240 Weight 106.9 kg - Attending Attestation I examined this patient and my medical decision-making was reviewed with the Resident Physician. I agree with the documented findings, disposition and treatment plan as described except to the extent set forth below. Patient seen and examined. Labs, radiology, chart personally reviewed. 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 He is being treated appropriately now and he will need outpatient follow-up and she will need pulmonary function tests. At this time he is feeling better and have asked the nurse to check his oxygen level on rest and ambulation. I suspect patient has obstructive sleep apnea also, however he denies it and he said he had the sleep study in the past and no evidence of sleep apnea. Thank you very much for consultation and we will be happy to establish patient when his discharge from the hospital. He may also need pulmonary rehabilitation. Patient can be discharged on current inhalers or equivalent based on what his insurance is covering. Please call for any questions.
--- NOTE | 2018-12-24 14:00 | Internal Med Progress Note ---
<Richard Nelson - Last Filed: 12/24/18 13:57> Hospitalist Progress Note - Encounter Date of Encounter: 12/24/18 Time of Encounter: 13:57 - Subjective Interval History: No acute events overnight. Patient reports his shortness of breath, cough, sputum production is improved but he still experiencing dyspnea with exertion. He is currently requiring 2 L oxygenation. He denies any chest pain, palpitations, abdominal pain, nausea, lower extremity pain. He is tolerating his diet. He is able to ambulate independently. - Exam Vitals: Temp Pulse Resp BP Pulse Ox 98.6 F 61 18 142/70 90 12/24/18 07:19 12/24/18 11:52 12/24/18 11:52 12/24/18 11:52 12/24/18 11:52 Exam: GGeneral: pleasant, without distress Cardiovascualr: Regular rate and rhythm with no murmur, absent gallops or rubs, absent pedal edema, radial pulses 2 out of 4 Lungs: Bilateral wheezing improved from yesterday, diminished not in respiratory distress Abdomen: Soft nontender, nondistended positive bowel sounds, absent hepatomegaly Skin: warm and dry, absent rash, absent open wounds and nodules MSK: absent clubbing, cyanosis, joints without swelling Neuro: Alert oriented 3, no focal deficits Psych: good insight and judgment - Assessment and Plan (1) Acute respiratory failure with hypoxia Current Visit: Yes Status: Acute Assessment and Plan: Secondary to COPD exacerbation Improving. Patient requiring 2 L oxygen supplementation down from 4L. At home he is not on oxygen Chest x-ray is within normal limits Laboratory shows WBC of 11.6 on admission. Troponin less than 0.03. continue oxygen supplementation, change to by mouth steroids and doxycycline 100 mg twice a day. Patient will have 5 day course of antibiotic therapy. Referral to pulmonology outpatient. Appreciate pulmonology recommendations. (2) Acute exacerbation of chronic obstructive airways disease Current Visit: Yes Status: Acute Assessment and Plan: plan as above. on doxycycline as fluoroquinolones are advised not to be given to patients who have a history of coronary disease (3) Coronary artery disease Current Visit: Yes Status: Chronic Assessment and Plan: Patient has a history of coronary disease He status post CABG in 2006 and 2010 Currently he denies chest pain His troponins negative 1 We will continue his home medications of simvastatin, aspirin, carvedilol. (4) Hyperlipidemia Current Visit: Yes Status: Chronic Assessment and Plan: Continue home medication of simvastatin. (5) Status post aortic valve replacement Current Visit: Yes Status: Chronic (6) Hypertension Current Visit: Yes Status: Chronic Assessment and Plan: Continue amlodipine. - Time Spent with Patient Total time spent is greater than 50% in coordination of care (as documented) at patient's floor/unit and/or counseling patient: Internal Medicine: Result - Labs CBC & Chem 7: 12/22/18 03:14 12/21/18 15:02 Consult Discharge Plan - Plan Referrals: Rashawn Russell MD [Partnered Physician] - 01/01/19 3:30 pm Lauryn Rogers MD [Primary Care Provider] - 12/29/18 10:00 am <Aries Pritchard - Last Filed: 12/24/18 16:53> Hospitalist Progress Note - Encounter Date of Encounter: 12/24/18 Internal Medicine: Result - Labs CBC & Chem 7: 12/22/18 03:14 12/21/18 15:02 - Attending Attestation Patient seen and examined independently, including review of objective data i ncluding labs. I agree with plan of care as documented above by the resident with the following comments: Rodríguez Phipps is a 58 M smoker w hx COPD but not on home O2, who p/w with COPD exacerbation and acute hypoxic respiratory failure. Does feel like he is improving and today was able to spend some time without O2, albeit at rest. Still desats and has fatigue/dyspnea with any exertion. Significant expiratory wheezing and prolonged expiratory phase. Continue nebs, steroids, and abx; will convert to PO. Pulm consult today per patient request, appreciate rec's. Will need walk test prior to d/c as expect pt will need home O2. Smoking cessation discussed today; pt refuses nicotine patch as he is not craving cigarettes at this time, hopeful to quit at discharge. <LeslieRichard - Last Filed: 12/24/18 13:57> (3) Coronary artery disease Qualifiers: Coronary Disease-Associated Artery/Lesion type: bypass graft [place] vs. transplanted heart: [place] heart Associated angina: without angina Qualified Code(s): I25.810 - Atherosclerosis of coronary artery bypass graft(s) without angina pectoris (4) Hyperlipidemia Qualifiers: Hyperlipidemia type: pure hypercholesterolemia Qualified Code(s): E78.00 - Pure hypercholesterolemia, unspecified; E78.0 - Pure hypercholesterolemia (6) Hypertension Qualifiers: Hypertension type: essential hypertension Qualified Code(s): I10 - Essential (primary) hypertension
--- NOTE | 2018-12-24 19:39 | Electrocardiograph Report ---
[place] [id number] Test Date: 2018-12-21 Pat Name: Rodríguez Phipps Department: [id number] Room: 3B24 Gender: M Radio Reporter: : 1960 Requested By: Oliver Enriquez Order Number: [id number] Reading MD: Teri Robert Measurements Intervals [place] Rate: 85 P: 39 MT: 196 QRS: 213 QRSD: 111 T: -7 QT: 360 QTc: 554 Interpretive Statements A-V dual-paced complexes Electronically Signed On 12-24-2018 19:37:59 EST by Teri Robert
[2018-12-25] MEDS: Ipratropium/Albuterol Neb 3 ML IH SCH ×2 (04:12→10:50)
[2018-12-25] MEDS: *HR* Heparin 5,000 UNIT/ML VIAL SQ SCH ×2 (05:20→13:43)
[2018-12-25] MEDS: Doxycycline 100 MG CAPSULE PO SCH (07:58)
[2018-12-25] MEDS: Aspirin Enteric Coated 81 MG Tablet PO SCH (07:58)
[2018-12-25] MEDS: amLODIPine 5 MG TABLET PO SCH (07:59)
[2018-12-25] MEDS: Famotidine 20 MG TABLET PO SCH (08:00)
[2018-12-25] MEDS ORDERED: predniSONE 20 MG TABLET PO SCH (09:00)
[2018-12-25] MEDS: Budesonide/Formoterol 160/4.5 1 PUFF INH IH SCH (10:50)
[2018-12-25 11:05] VITALS: BP 138/81
--- NOTE | 2018-12-25 11:59 | Discharge Summary ---
<BoTia Chandler - Last Filed: 12/25/18 13:21> - NOTES TO OUTPATIENT PROVIDER Notes to Outpatient Provider: Scheduled for hospital follow up with PCP and Pulmonology. Date of Encounter: 12/25/18 Time of Encounter: 09:47 - Discharge Diagnosis (1) Acute respiratory failure with hypoxia Priority: Primary Status: Acute (2) COPD exacerbation Priority: Secondary Status: Acute (3) Coronary artery disease Priority: Secondary Status: Chronic Qualifiers: Coronary Disease-Associated Artery/Lesion type: bypass graft [place] vs. transplanted heart: [place] heart Associated angina: without angina Qualified Code(s): I25.810 - Atherosclerosis of coronary artery bypass graft(s) without angina pectoris (4) Hyperlipidemia Priority: Secondary Status: Chronic Qualifiers: Hyperlipidemia type: pure hypercholesterolemia Qualified Code(s): E78.00 - Pure hypercholesterolemia, unspecified; E78.0 - Pure hypercholesterolemia (5) Status post aortic valve replacement Priority: Secondary Status: Chronic (6) Hypertension Priority: Secondary Status: Chronic Qualifiers: Hypertension type: essential hypertension Qualified Code(s): I10 - Essential (primary) hypertension Hospital course: Mr. Phipps is a 58 year old male with recent diagnosis of COPD who presented to the ER on 12/21/18 with complaint of shortness of breath. Patient was found to have acute respiratory failure with hypoxia requiring 4L of supplemental O2 on admission, without O2 requirements at home. Chest x-ray showed no acute abnormalities. Patient received IV steroids and Doxycycline due to history of CAD for acute COPD exacerbation. Pulmonology was consulted and recommended Symbicort, a 5 day course of antibiotics and a steroid taper on discharge with outpatient followup with Pulmonology. Patient has been weaned to 2L supplemental oxygen. He qualified for home oxygen with 6 minute walk test. Patient is clinically improving and stable for discharge home with outpatient follow up with PCP and Pulmonology. Discharge discussed with: patient - Time Spent with Patient Total time spent providing and/or coordinating discharge services: - Discharge Medications Prescriptions: New Budesonide/Formoterol 160/4.5 [Symbicort 160/4.5] 2 puff IH BIDR #1 inh Doxycycline 100 mg PO BID #5 capsule predniSONE [PredniSONE] See Taper PO DAILY #30 tablet Continue Simvastatin [Zocor] 20 mg PO HS Carvedilol [Coreg] 6.25 mg PO BIDWM Aspirin [Adult Low Dose Aspirin EC] 81 mg PO DAILY Ranitidine HCl [Zantac] 150 mg PO BID amLODIPine [Norvasc] 5 mg PO DAILY Albuterol Sulfate [Proair Respiclick] 90 mcg IH Q4HR PRN #15 [email or web address] PRN Reason: Shortness Of Breath Albuterol Neb [Proventil Neb] 2.5 mg IH Q6H Home Medications: Aspirin [Adult Low Dose Aspirin EC] 81 mg PO DAILY 11/06/15 [History] Carvedilol [Coreg] 6.25 mg PO BIDWM 11/06/15 [History] Ranitidine HCl [Zantac] 150 mg PO BID 11/06/15 [History] Simvastatin [Zocor] 20 mg PO HS 11/06/15 [History] amLODIPine [Norvasc] 5 mg PO DAILY 11/06/15 [History] Albuterol Sulfate [Proair Respiclick] 90 mcg IH Q4HR PRN #15 [email or web address] 11/07/15 [Rx] Albuterol Neb [Proventil Neb] 2.5 mg IH Q6H 12/21/18 [History] Budesonide/Formoterol 160/4.5 [Symbicort 160/4.5] 2 puff IH BIDR #1 inh 12/25/18 [Rx] Doxycycline 100 mg PO BID #5 capsule 12/25/18 [Rx] predniSONE [PredniSONE] See Taper PO DAILY #30 tablet 12/25/18 [Rx] Allergies/Adverse Reactions: Allergy/AdvReac Type Severity Reaction Status Date / Time No Known Allergies Allergy Verified 03/04/17 03:17 Date of admission: 12/24/18 10:43 Primary care physician: Lauryn Rogers MD Consults: 12/21/18 17:37 Consult to Nurse Navigator [CONS] Routine Comment: 12/22/18 08:35 Consult to Nurse Navigator [CONS] Routine Comment: COPD 12/24/18 10:11 Consult to Pulmonology [CONS] Routine Consulting Provider: [facility] Reason for Consult: COPD Call Completed: Yes Discharging clinician: Tia Soriano Anticipated date of discharge: 12/25/18 - Constitutional Vitals: Temp Pulse Resp BP Pulse Ox 97.6 F 73 18 138/81 94 12/25/18 11:00 12/25/18 11:00 12/25/18 11:00 12/25/18 11:00 12/25/18 11:00 Exam: General: pleasant, no acute distress Cardiovascualr: RRR, no murmur Lungs: Bilateral wheezing improved, saturating well on 2L NC, no respiratory distress Abdomen: Soft, nontender, nondistended, positive bowel sounds, absent hepatomegaly Skin: intact, warm and dry, no lesions or rash MSK: absent clubbing, cyanosis, edema Neuro: Alert oriented 3, no focal deficits Psych: good insight and judgment - Patient Status Disposition: Home, Self-Care Condition: Fair Functional capacity at discharge: independent ambulation Overall status at discharge: patient is progressing back to baseline - Discharge Instructions Follow Up With: Rashawn Russell MD [Partnered Physician] - 01/01/19 3:30 pm Lauryn Rogers MD [Primary Care Provider] - 12/29/18 10:00 am Additional Instructions: Home oxygen has been set up through [facility]. Once you get home call [facility] to have them deliver oxygen equipment and nebulizer machine. Their phone number is #[phone]. - Diet and Activity Activity: increase activity as tolerated Diet: low salt diet <Aries Pritchard - Last Filed: 12/25/18 14:48> - NOTES TO OUTPATIENT PROVIDER Notes to Outpatient Provider: COPD exacerbation newly on home O2 Date of Encounter: 12/25/18 Date of admission: 12/24/18 10:43 Primary care physician: Lauryn Rogers MD Consults: 12/21/18 17:37 Consult to Nurse Navigator [CONS] Routine Comment: 12/22/18 08:35 Consult to Nurse Navigator [CONS] Routine Comment: COPD 12/24/18 10:11 Consult to Pulmonology [CONS] Routine Consulting Provider: [facility] Reason for Consult: COPD Call Completed: Yes - Attending Attestation Patient seen and examined. I agree with the discharge plan as documented above by the resident. In summary, patient presented with SOB, wheezing, and hypoxia, consistent with COPD exacerbation. On day of discharge, pt symptomatically improved but still desaturating to 86% on room air while ambulating although pt did make the entire 6 minutes without fatigue (I personally performed this assessment). Will benefit from 2L O2 home oxygen for new diagnosis of chronic hypoxemic respiratory failure due to COPD. Pt needs home O2, portable tank and concentrator. Will also finish short course abx and extended prednisone taper.
== END 2018-12-25 15:32 | disposition home or self-care (01) | DRG 189 ==
LOC: EMEROOARM 14:33 → 3BNU 14:33 → SUATTDRO 17:51 → 3BNU 18:21
PROVIDERS: ADMIT Internal Medicine; ATTEND Internal Medicine

== ENCOUNTER 2022-06-21 11:07 | Inpatient (IN) ==
[2022-06-21 12:01] LABS: BUN/Creatinine Ratio 21 (6-26); Blood Urea Nitrogen 19 mg/dL (8-23); Calcium 9.5 mg/dL (8.6-10.3); Carbon Dioxide 28 mEq/L (23-29); Chloride 100 mEq/L (98-107); Glucose 128 mg/dL (70-105); Osmolality,Calculated 284 (280-300); Potassium 4.7 mEq/L (3.5-5.1); Sodium 135 mEq/L (136-145)
[2022-06-21 12:09] LABS: Basophils % 0.3 %; Eosinophils # 0.1 K/mcL (0.0-0.6); Eosinophils % 0.4 %; Hematocrit 47.5 % (37.5-50.1); Hemoglobin 15.8 g/dL (12.9-16.9); Immature Granulocytes % 0.4 % (0-4); Lymphocytes # 2.1 K/mcL (0.6-4.6); Lymphocytes % 18.3 %; Mean Corpuscular HGB Conc 33.3 g/dL (31.6-35.5); Mean Corpuscular Hemoglobin 30.7 pg (28.0-33.3); Mean Corpuscular Volume 92.4 fL (83.0-100.0); Mean Platelet Volume 9.8 fL (9.4-12.4); Monocytes # 0.8 K/mcL (0.0-1.3); Monocytes % 6.5 %; Neutrophils # 8.6 K/mcL (1.6-8.9); Platelet Count 175 K/mcL (140-400); Red Blood Count 5.14 M/mcL (4.19-5.50); Red Cell Distribution Width 12.7 % (11.5-14.5); Segmented Neutrophils % 74.1 %; Troponin I 0.04 ng/mL (< 0.04); White Blood Count 11.6 K/mcL (4.3-11.1)
[2022-06-21] MEDS ORDERED: 0.9 % Sodium Chloride 1,000 ML IVC ONE (12:48)
[2022-06-21] MEDS ORDERED: *HR* Heparin 5,000 UNIT/ML VIAL IVP PRN (12:50)
[2022-06-21] MEDS ORDERED: *HR* Heparin 5,000 UNIT/ML VIAL IVP ONE (12:50)
[2022-06-21 13:26] LABS: Thyroid Stimulating Hormone 1.142 mcIU/mL (0.340-5.600)
[2022-06-21] MEDS: DilTIAZem 50 MG/50 ML IV.SOLN IVC SCH ×2 (13:51→21:05)
[2022-06-21] MEDS: Heparin 25,000UNIT/250ML 1/2NS 25,000 UNIT/250 ML IV.SOLN IVC SCH (13:53)
[2022-06-21 14:00] LABS: Heparin anti-factor XA UFH < 0.04 IU/mL (0.30-0.70); INR 1.1; Prothrombin Time 11.8 Seconds (9.4-12.1)
[2022-06-21] MEDS ORDERED: MOM Conc 10 ML UD.LIQ PO PRN (14:59)
[2022-06-21] MEDS ORDERED: Naloxone 0.4 MG/ML INJ IVP PRN (14:59)
[2022-06-21] MEDS ORDERED: Mag Hydrox/Al Hydrox/Simeth 30 ML UDC PO PRN (14:59)
[2022-06-21] MEDS ORDERED: Ondansetron ODT 4 MG TAB.RAPDIS SL PRN (14:59)
[2022-06-21] MEDS ORDERED: Melatonin 3 MG TABLET PO PRN (14:59)
[2022-06-21] MEDS: Azithromycin 250 MG TABLET PO SCH (15:58)
[2022-06-21] MEDS ORDERED: Albuterol 2.5 MG/3 ML NEBULIZER IH SCH (16:00)
[2022-06-21] MEDS: Ipratropium/Albuterol Neb 3 ML IH SCH ×2 (20:30→23:13)
[2022-06-21] MEDS: Budesonide/Formoterol 160/4.5 1 PUFF INH IH SCH (20:30)
[2022-06-21] MEDS: *HR* Heparin 5,000 UNIT/ML VIAL IVP PRN (20:37)
[2022-06-22 01:58] LABS: Basophils % 0.3 %; Eosinophils # 0.1 K/mcL (0.0-0.6); Hematocrit 42.1 % (37.5-50.1); Immature Granulocytes % 0.4 % (0-4); Lymphocytes # 3.9 K/mcL (0.6-4.6); Lymphocytes % 34.7 %; Mean Corpuscular Hemoglobin 30.7 pg (28.0-33.3); Mean Corpuscular Volume 92.9 fL (83.0-100.0); Mean Platelet Volume 9.4 fL (9.4-12.4); Monocytes # 0.9 K/mcL (0.0-1.3); Monocytes % 8.2 %; Neutrophils # 6.3 K/mcL (1.6-8.9); Platelet Count 144 K/mcL (140-400); Red Blood Count 4.53 M/mcL (4.19-5.50); Red Cell Distribution Width 12.7 % (11.5-14.5); Segmented Neutrophils % 55.4 %; White Blood Count 11.3 K/mcL (4.3-11.1)
[2022-06-22 01:59] LABS: Hemoglobin 13.9 g/dL (12.9-16.9)
[2022-06-22 02:16] LABS: Chol/HDL Ratio 3.6 (0-4.9)
[2022-06-22 02:27] LABS: Troponin I 0.1 ng/mL (< 0.04)
[2022-06-22] MEDS: Ipratropium/Albuterol Neb 3 ML IH SCH ×7 (04:45→23:47)
[2022-06-22] MEDS: Budesonide/Formoterol 160/4.5 1 PUFF INH IH SCH ×2 (07:13→19:54)
[2022-06-22] MEDS: Azithromycin 250 MG TABLET PO SCH (08:47)
[2022-06-22] MEDS ORDERED: Metoprolol XL (24 HR) Succ 50 MG TAB.ER.24H PO SCH ×2 (09:00→21:00)
[2022-06-22] MEDS: Heparin 25,000UNIT/250ML 1/2NS 25,000 UNIT/250 ML IV.SOLN IVC SCH ×2 (10:51→23:25)
[2022-06-22] MEDS ORDERED: amLODIPine 5 MG TABLET PO SCH (11:00)
[2022-06-22] MEDS ORDERED: 0.9 % Sodium Chloride 2,000 ML ONE (14:06)
[2022-06-22] MEDS ORDERED: Heparin 1,000 UNITS/500 mL 500 ML ONE ×2 (14:06→15:37)
[2022-06-22] MEDS ORDERED: Iopamidol - 370 200 ML INFUS..BTL ONE ×2 (14:06→15:05)
[2022-06-22] MEDS ORDERED: Nitroglycerin 1,000 MCG/5 ML VIAL IV ONE (14:06)
[2022-06-22] MEDS ORDERED: *HR* Heparin 10,000 UNIT/10 ML VIAL ONE (14:06)
[2022-06-22] MEDS ORDERED: *HR* FentaNYL (PF) 100 MCG/2 ML VIAL ONE (14:28)
[2022-06-22] MEDS ORDERED: *HR* Midazolam HCl 2 MG/2 ML VIAL ONE (14:29)
[2022-06-22] MEDS: traZODone 50 MG TABLET PO SCH (20:05)
[2022-06-23] MEDS: Ipratropium/Albuterol Neb 3 ML IH SCH ×6 (03:59→23:58)
[2022-06-23] MEDS: *HR* Heparin 5,000 UNIT/ML VIAL IVP PRN (06:22)
[2022-06-23] MEDS: Budesonide/Formoterol 160/4.5 1 PUFF INH IH SCH ×2 (07:21→19:25)
[2022-06-23] MEDS: Azithromycin 250 MG TABLET PO SCH (08:52)
[2022-06-23] MEDS: Metoprolol XL (24 HR) Succ 50 MG TAB.ER.24H PO SCH ×2 (08:52→19:49)
[2022-06-23] MEDS: Aspirin Enteric Coated 81 MG Tablet PO SCH (08:52)
[2022-06-23] MEDS: Apixaban 5 MG TABLET PO SCH ×2 (11:00→19:48)
[2022-06-23] MEDS ORDERED: Acetaminophen 325 MG TABLET PO PRN (11:16)
[2022-06-23] MEDS: traZODone 50 MG TABLET PO SCH (19:48)
[2022-06-23 23:51] VITALS: O2SAT 93
[2022-06-24] MEDS: Ipratropium/Albuterol Neb 3 ML IH SCH ×3 (04:13→11:13)
[2022-06-24] MEDS: Budesonide/Formoterol 160/4.5 1 PUFF INH IH SCH (07:29)
[2022-06-24 08:16] LABS: Basophils % 0.4 %; Eosinophils # 0.3 K/mcL (0.0-0.6); Eosinophils % 2.3 %; Hematocrit 43.2 % (37.5-50.1); Hemoglobin 14.3 g/dL (12.9-16.9); Immature Granulocytes % 0.4 % (0-4); Lymphocytes % 26.6 %; Mean Corpuscular HGB Conc 33.1 g/dL (31.6-35.5); Mean Corpuscular Hemoglobin 30.9 pg (28.0-33.3); Mean Corpuscular Volume 93.3 fL (83.0-100.0); Mean Platelet Volume 9.3 fL (9.4-12.4); Monocytes # 0.9 K/mcL (0.0-1.3); Monocytes % 8.2 %; Platelet Count 128 K/mcL (140-400); Red Blood Count 4.63 M/mcL (4.19-5.50); Red Cell Distribution Width 12.9 % (11.5-14.5); Segmented Neutrophils % 62.1 %; White Blood Count 11.2 K/mcL (4.3-11.1)
[2022-06-24 08:35] LABS: BUN/Creatinine Ratio 17 (6-26); Blood Urea Nitrogen 16 mg/dL (8-23); Carbon Dioxide 28 mEq/L (23-29); Chloride 104 mEq/L (98-107); Glucose 115 mg/dL (70-105); Osmolality,Calculated 286 (280-300); Potassium 4.3 mEq/L (3.5-5.1); Sodium 137 mEq/L (136-145)
[2022-06-24] MEDS: Aspirin Enteric Coated 81 MG Tablet PO SCH (09:21)
[2022-06-24] MEDS: Apixaban 5 MG TABLET PO SCH (09:21)
[2022-06-24] MEDS: Metoprolol XL (24 HR) Succ 50 MG TAB.ER.24H PO SCH (09:22)
[2022-06-24] MEDS ORDERED: DilTIAZem CD (24hr) 120 MG CAP.ER.24H PO SCH (09:45)
[2022-06-24 11:41] VITALS: BP 119/67; PULSE 76; TEMP 98
[2022-06-24] MEDS ORDERED: Metoprolol XL (24 HR) Succ 50 MG TAB.ER.24H PO ONE (12:44)
[2022-06-24] MEDS ORDERED: Metoprolol XL (24 HR) Succ 50 MG TAB.ER.24H PO SCH (21:00)
== END 2022-06-24 14:27 | disposition home or self-care (01) | DRG 280 ==
LOC: 2ANU 11:07 → EMEROOARM 11:07 → SUATTDRO 14:20 → 2ANU 15:30
PROVIDERS: ADMIT Internal Medicine; ATTEND Registered Nurse

== ENCOUNTER 2022-08-15 12:24 | Inpatient (IN) ==
[2022-08-15] MEDS ORDERED: Furosemide 40 MG/4 ML VIAL IVP ONE (12:47)
[2022-08-15] MEDS ORDERED: Ipratropium/Albuterol Neb 3 ML IH ONE (12:47)
[2022-08-15] MEDS ORDERED: predniSONE 20 MG TABLET PO ONE (12:47)
[2022-08-15] MEDS ORDERED: cefTRIAXone 1,000 MG in 0.9 % Sodium Chloride 10 ML IVP ONE (12:47)
[2022-08-15 13:26] LABS: Mixed Venous Blood pCO2 52 mmHg (44-46); Mixed Venous Blood pH 7.36 pH Units (7.34-7.36); Mixed Venous Blood pO2 58 mmHg (35-45)
[2022-08-15 13:35] LABS: Basophils # 0.1 K/mcL (0.0-0.2); Basophils % 0.9 %; Eosinophils # 0.1 K/mcL (0.0-0.6); Eosinophils % 2.2 %; Hematocrit 41.1 % (37.5-50.1); Immature Granulocytes % 0.3 % (0-4); Lymphocytes # 1.4 K/mcL (0.6-4.6); Lymphocytes % 21.5 %; Mean Corpuscular HGB Conc 31.6 g/dL (31.6-35.5); Mean Corpuscular Hemoglobin 29.2 pg (28.0-33.3); Mean Corpuscular Volume 92.4 fL (83.0-100.0); Mean Platelet Volume 9.8 fL (9.4-12.4); Monocytes # 0.6 K/mcL (0.0-1.3); Monocytes % 9.3 %; Neutrophils # 4.2 K/mcL (1.6-8.9); Platelet Count 140 K/mcL (140-400); Red Blood Count 4.45 M/mcL (4.19-5.50); Red Cell Distribution Width 13.7 % (11.5-14.5); Segmented Neutrophils % 65.8 %; White Blood Count 6.4 K/mcL (4.3-11.1)
[2022-08-15 13:52] LABS: BUN/Creatinine Ratio 15 (6-26); Blood Urea Nitrogen 12 mg/dL (8-23); Calcium 9.7 mg/dL (8.6-10.3); Carbon Dioxide 30 mEq/L (23-29); Chloride 99 mEq/L (98-107); Glucose 113 mg/dL (70-105); Osmolality,Calculated 283 (280-300); Potassium 4.7 mEq/L (3.5-5.1); Sodium 136 mEq/L (136-145)
[2022-08-15 13:53] LABS: Troponin I 0.03 ng/mL (< 0.04)
[2022-08-15 14:13] LABS: Prothrombin Time 21.9 Seconds (9.4-12.1)
[2022-08-15] MEDS ORDERED: Acetaminophen 325 MG TABLET PO PRN (15:45)
[2022-08-15] MEDS ORDERED: Naloxone 0.4 MG/ML INJ IVP PRN (15:45)
[2022-08-15] MEDS ORDERED: Melatonin 3 MG TABLET PO PRN (15:45)
[2022-08-15] MEDS: Furosemide 40 MG/4 ML VIAL IVP SCH (20:36)
[2022-08-15] MEDS: Apixaban 5 MG TABLET PO SCH (20:37)
[2022-08-15] MEDS: traZODone 50 MG TABLET PO SCH (20:37)
[2022-08-15] MEDS: Metoprolol XL (24 HR) Succ 50 MG TAB.ER.24H PO SCH (20:37)
[2022-08-15] MEDS: Ipratropium Neb 0.5 MG NEBULIZER IH SCH (22:24)
[2022-08-15] MEDS: Levalbuterol Neb 1.25 MG/3 ML IH SCH (22:24)
[2022-08-16] MEDS: Levalbuterol Neb 1.25 MG/3 ML IH SCH ×4 (03:42→19:12)
[2022-08-16] MEDS: Ipratropium Neb 0.5 MG NEBULIZER IH SCH ×4 (03:42→19:12)
[2022-08-16 06:00] LABS: Basophils % 0.3 %; Hemoglobin 11.5 g/dL (12.9-16.9); Immature Granulocytes % 0.3 % (0-4); Lymphocytes % 24.8 %; Mean Corpuscular HGB Conc 31.1 g/dL (31.6-35.5); Mean Corpuscular Hemoglobin 28.8 pg (28.0-33.3); Mean Corpuscular Volume 92.7 fL (83.0-100.0); Mean Platelet Volume 9.9 fL (9.4-12.4); Monocytes # 0.4 K/mcL (0.0-1.3); Monocytes % 9.4 %; Neutrophils # 2.5 K/mcL (1.6-8.9); Platelet Count 126 K/mcL (140-400); Red Blood Count 3.99 M/mcL (4.19-5.50); Red Cell Distribution Width 13.6 % (11.5-14.5); Segmented Neutrophils % 65.2 %; White Blood Count 3.8 K/mcL (4.3-11.1)
[2022-08-16 06:19] LABS: BUN/Creatinine Ratio 17 (6-26); Blood Urea Nitrogen 15 mg/dL (8-23); Carbon Dioxide 34 mEq/L (23-29); Chloride 98 mEq/L (98-107); Glucose 149 mg/dL (70-105); Osmolality,Calculated 288 (280-300); Potassium 4.4 mEq/L (3.5-5.1); Sodium 137 mEq/L (136-145)
[2022-08-16] MEDS: DilTIAZem CD (24hr) 180 MG CAP.ER.24H PO SCH (08:50)
[2022-08-16] MEDS: Furosemide 40 MG/4 ML VIAL IVP SCH ×2 (08:50→18:32)
[2022-08-16] MEDS: Metoprolol XL (24 HR) Succ 50 MG TAB.ER.24H PO SCH ×2 (08:51→22:01)
[2022-08-16] MEDS: Cholecalciferol (D-3) 1,000 UNIT (25MCG) TABLET PO SCH (08:51)
[2022-08-16] MEDS: Ascorbic Acid 500 MG TABLET PO SCH (08:51)
[2022-08-16] MEDS: Apixaban 5 MG TABLET PO SCH ×2 (08:51→22:00)
[2022-08-16] MEDS: Aspirin Enteric Coated 81 MG Tablet PO SCH (08:51)
[2022-08-16] MEDS: Budesonide/Formoterol 160/4.5 1 PUFF INH IH SCH ×2 (09:05→20:38)
[2022-08-16] MEDS: Tiotropium 10 INH DOSE IH SCH (09:06)
[2022-08-16] MEDS: Albumin 25% 25gram/100mL 25 GM/100 ML IV.SOLN IVC SCH ×3 (18:03→22:04)
[2022-08-16] MEDS: predniSONE 20 MG TABLET PO SCH (18:07)
[2022-08-16] MEDS: Azithromycin 250 MG TABLET PO SCH (18:07)
[2022-08-16] MEDS ORDERED: Furosemide 40 MG/4 ML VIAL IVP ONE (18:31)
[2022-08-16] MEDS ORDERED: Furosemide 20 MG/2 ML VIAL IVP ONE (18:45)
[2022-08-16] MEDS ORDERED: Levalbuterol Neb 1.25 MG/3 ML IH ONE (18:53)
[2022-08-16] MEDS: Furosemide 240 MG in 0.9 % Sodium Chloride 96 ML IVC SCH (18:55)
[2022-08-16 20:43] LABS: ABG Base Excess 5 mEq/L (-2 to 3); ABG HCO3 30 mEq/L (21-27); ABG Oxygen Saturation 94 % (95-98); ABG PCO2 49 mmHg (35-45); ABG PO2 72 mmHg (85-104); ABG TCO2 32 mEq/L (20-26)
[2022-08-16] MEDS ORDERED: Amiodarone 450 MG in 0.9 % Sodium Chloride Excel Bg 241 ML IVC SCH (21:00)
[2022-08-16] MEDS ORDERED: Amiodarone Premix 150 MG/100 ML BAG IVPB ONE (21:12)
[2022-08-16] MEDS ORDERED: Amiodarone Premix 360 MG/200 ML BAG IVC ONE (21:30)
[2022-08-16] MEDS: traZODone 50 MG TABLET PO SCH (22:01)
[2022-08-17] MEDS: Levalbuterol Neb 1.25 MG/3 ML IH SCH ×6 (00:03→20:30)
[2022-08-17] MEDS: Ipratropium Neb 0.5 MG NEBULIZER IH SCH ×6 (00:04→20:30)
[2022-08-17] MEDS ORDERED: Amiodarone Premix 360 MG/200 ML BAG IVC SCH (02:50)
[2022-08-17 03:18] LABS: Basophils % 0.4 %; Hematocrit 38.6 % (37.5-50.1); Hemoglobin 11.9 g/dL (12.9-16.9); Immature Granulocytes % 0.5 % (0-4); Lymphocytes # 0.7 K/mcL (0.6-4.6); Lymphocytes % 8.6 %; Mean Corpuscular HGB Conc 30.8 g/dL (31.6-35.5); Mean Corpuscular Hemoglobin 28.7 pg (28.0-33.3); Mean Corpuscular Volume 93.2 fL (83.0-100.0); Mean Platelet Volume 9.9 fL (9.4-12.4); Monocytes # 0.3 K/mcL (0.0-1.3); Monocytes % 4.1 %; Neutrophils # 6.7 K/mcL (1.6-8.9); Platelet Count 152 K/mcL (140-400); Red Blood Count 4.14 M/mcL (4.19-5.50); Red Cell Distribution Width 13.9 % (11.5-14.5); Segmented Neutrophils % 86.4 %
[2022-08-17 03:23] LABS: White Blood Count 7.8 K/mcL (4.3-11.1)
[2022-08-17 03:41] LABS: Chol/HDL Ratio 4.5 (0-4.9); Potassium 4.8 mEq/L (3.5-5.1)
[2022-08-17] MEDS: Amiodarone Premix 360 MG/200 ML BAG IVC SCH ×2 (03:41→15:18)
[2022-08-17] MEDS: Budesonide/Formoterol 160/4.5 1 PUFF INH IH SCH ×2 (07:23→20:32)
[2022-08-17] MEDS: Tiotropium 10 INH DOSE IH SCH (07:26)
[2022-08-17] MEDS: predniSONE 20 MG TABLET PO SCH (10:12)
[2022-08-17] MEDS: Apixaban 5 MG TABLET PO SCH ×2 (10:13→20:13)
[2022-08-17] MEDS: Aspirin Enteric Coated 81 MG Tablet PO SCH (10:13)
[2022-08-17] MEDS: Azithromycin 250 MG TABLET PO SCH (10:13)
[2022-08-17] MEDS: Ascorbic Acid 500 MG TABLET PO SCH (10:13)
[2022-08-17] MEDS: Cholecalciferol (D-3) 1,000 UNIT (25MCG) TABLET PO SCH (10:13)
[2022-08-17 13:48] LABS: ABG Base Excess 7 mEq/L (-2 to 3); ABG HCO3 38 mEq/L (21-27); ABG Oxygen Saturation 97 % (95-98); ABG PCO2 91 mmHg (35-45); ABG PH 7.23 pH Units (7.32-7.45); ABG PO2 114 mmHg (85-104); ABG TCO2 41 mEq/L (20-26)
[2022-08-17] MEDS: DilTIAZem CD (24hr) 180 MG CAP.ER.24H PO SCH (15:17)
[2022-08-17] MEDS: Metoprolol XL (24 HR) Succ 50 MG TAB.ER.24H PO SCH ×2 (15:17→20:12)
[2022-08-17] MEDS: Furosemide 240 MG in 0.9 % Sodium Chloride 96 ML IVC SCH (15:17)
[2022-08-17] MEDS: traZODone 50 MG TABLET PO SCH (20:13)
[2022-08-17] MEDS: *HR* Amiodarone 200 MG TABLET PO SCH ×2 (20:23→20:53)
[2022-08-18] MEDS: Levalbuterol Neb 1.25 MG/3 ML IH SCH ×7 (00:20→22:39)
[2022-08-18] MEDS: Ipratropium Neb 0.5 MG NEBULIZER IH SCH ×7 (00:20→22:39)
[2022-08-18] MEDS: Amiodarone Premix 360 MG/200 ML BAG IVC SCH ×2 (01:50→15:08)
[2022-08-18] MEDS: Budesonide/Formoterol 160/4.5 1 PUFF INH IH SCH ×2 (07:37→19:50)
[2022-08-18] MEDS: Tiotropium 10 INH DOSE IH SCH (07:50)
[2022-08-18] MEDS: Apixaban 5 MG TABLET PO SCH (08:51)
[2022-08-18] MEDS: *HR* Amiodarone 200 MG TABLET PO SCH ×2 (08:51→20:00)
[2022-08-18] MEDS: Azithromycin 250 MG TABLET PO SCH (08:51)
[2022-08-18] MEDS: Cholecalciferol (D-3) 1,000 UNIT (25MCG) TABLET PO SCH (08:51)
[2022-08-18] MEDS: Ascorbic Acid 500 MG TABLET PO SCH (08:51)
[2022-08-18] MEDS: predniSONE 20 MG TABLET PO SCH (08:52)
[2022-08-18] MEDS: Aspirin Enteric Coated 81 MG Tablet PO SCH (08:52)
[2022-08-18] MEDS: DilTIAZem CD (24hr) 180 MG CAP.ER.24H PO SCH (08:52)
[2022-08-18] MEDS: Metoprolol XL (24 HR) Succ 50 MG TAB.ER.24H PO SCH ×2 (08:52→20:00)
[2022-08-18 10:52] LABS: Basophils % 0.1 %; Hemoglobin 12.2 g/dL (12.9-16.9); Immature Granulocytes % 0.4 % (0-4); Lymphocytes # 1.6 K/mcL (0.6-4.6); Lymphocytes % 20.1 %; Mean Corpuscular HGB Conc 29.8 g/dL (31.6-35.5); Mean Corpuscular Volume 94.3 fL (83.0-100.0); Mean Platelet Volume 9.9 fL (9.4-12.4); Monocytes # 1.2 K/mcL (0.0-1.3); Monocytes % 15.2 %; Platelet Count 149 K/mcL (140-400); Red Blood Count 4.35 M/mcL (4.19-5.50); Red Cell Distribution Width 13.6 % (11.5-14.5); Segmented Neutrophils % 64.2 %; White Blood Count 7.8 K/mcL (4.3-11.1)
[2022-08-18 11:06] LABS: Calcium 8.7 mg/dL (8.6-10.3)
[2022-08-18 15:25] LABS: ABG Base Excess 8 mEq/L (-2 to 3); ABG HCO3 39 mEq/L (21-27); ABG Oxygen Saturation 94 % (95-98); ABG PCO2 83 mmHg (35-45); ABG PH 7.28 pH Units (7.32-7.45); ABG PO2 82 mmHg (85-104); ABG TCO2 41 mEq/L (20-26); Blood Gas Modality NIV; Blood Gas Pressure Support 12 cm H2O
[2022-08-18] MEDS ORDERED: Albumin 25% 25gram/100mL 25 GM/100 ML IV.SOLN IVPB ONE (15:51)
[2022-08-18 18:08] LABS: Adenovirus Not Detected (Not Detect); Bordetella Pertussis Not Detected (Not Detect); Chlamydophila pneumoniae Not Detected (Not Detect); Coronavirus 229E Not Detected (Not Detect); Coronavirus HKU1 Not Detected (Not Detect); Coronavirus NL63 Not Detected (Not Detect); Coronavirus OC43 Not Detected (Not Detect); Human Metapneumovirus Not Detected (Not Detect); Human Rhinovirus/Enterovirus Not Detected (Not Detect); Influenza A Subtype 2009 H1 Not Detected (Not Detect); Influenza B Not Detected (Not Detect); Mycoplasma pneumoniae Not Detected (Not Detect); Parainfluenza Virus 1 Not Detected (Not Detect); Parainfluenza Virus 2 Not Detected (Not Detect); Parainfluenza Virus 3 Not Detected (Not Detect); Parainfluenza Virus 4 DETECTED (Not Detect); Respiratory Syncytial Virus Not Detected (Not Detect); SARS-CoV-2 Not Detected (Not Detect)
[2022-08-18] MEDS: Melatonin 3 MG TABLET PO SCH (20:00)
[2022-08-18] MEDS: traZODone 50 MG TABLET PO SCH (20:00)
[2022-08-18 20:17] LABS: ABG Base Excess 8 mEq/L (-2 to 3); ABG HCO3 39 mEq/L (21-27); ABG Oxygen Saturation 97 % (95-98); ABG PCO2 85 mmHg (35-45); ABG PH 7.27 pH Units (7.32-7.45); ABG PO2 114 mmHg (85-104); ABG TCO2 41 mEq/L (20-26)
[2022-08-18 22:43] LABS: ABG Base Excess 6 mEq/L (-2 to 3); ABG HCO3 36 mEq/L (21-27); ABG Oxygen Saturation 96 % (95-98); ABG PCO2 80 mmHg (35-45); ABG PH 7.26 pH Units (7.32-7.45); ABG PO2 100 mmHg (85-104); ABG TCO2 38 mEq/L (20-26); Blood Gas Modality avaps; Blood Gas VT 450 cc
[2022-08-19] MEDS: Amiodarone Premix 360 MG/200 ML BAG IVC SCH (02:55)
[2022-08-19] MEDS: Ipratropium Neb 0.5 MG NEBULIZER IH SCH ×6 (03:14→23:06)
[2022-08-19] MEDS: Levalbuterol Neb 1.25 MG/3 ML IH SCH ×6 (03:14→23:06)
[2022-08-19 03:55] LABS: Basophils % 0.1 %; Hematocrit 40.8 % (37.5-50.1); Hemoglobin 12.5 g/dL (12.9-16.9); Immature Granulocytes % 0.6 % (0-4); Lymphocytes # 1.5 K/mcL (0.6-4.6); Lymphocytes % 17.3 %; Mean Corpuscular HGB Conc 30.6 g/dL (31.6-35.5); Mean Corpuscular Hemoglobin 28.5 pg (28.0-33.3); Mean Corpuscular Volume 92.9 fL (83.0-100.0); Mean Platelet Volume 10.4 fL (9.4-12.4); Monocytes # 1.1 K/mcL (0.0-1.3); Monocytes % 12.9 %; Neutrophils # 6.1 K/mcL (1.6-8.9); Nucleated Red Blood Cells 0.3 /100 WBC (0); Platelet Count 170 K/mcL (140-400); Red Blood Count 4.39 M/mcL (4.19-5.50); Red Cell Distribution Width 13.5 % (11.5-14.5); Segmented Neutrophils % 69.1 %; White Blood Count 8.8 K/mcL (4.3-11.1)
[2022-08-19 04:15] LABS: Calcium 8.8 mg/dL (8.6-10.3); Potassium 5.1 mEq/L (3.5-5.1)
[2022-08-19] MEDS: Budesonide/Formoterol 160/4.5 1 PUFF INH IH SCH ×2 (07:25→20:00)
[2022-08-19] MEDS: Tiotropium 10 INH DOSE IH SCH (07:29)
[2022-08-19] MEDS: Aspirin Enteric Coated 81 MG Tablet PO SCH (08:13)
[2022-08-19] MEDS: predniSONE 20 MG TABLET PO SCH (08:13)
[2022-08-19] MEDS: *HR* Amiodarone 200 MG TABLET PO SCH ×2 (08:13→20:28)
[2022-08-19] MEDS: Ascorbic Acid 500 MG TABLET PO SCH (08:13)
[2022-08-19] MEDS: Metoprolol XL (24 HR) Succ 50 MG TAB.ER.24H PO SCH ×2 (08:13→20:27)
[2022-08-19] MEDS: Cholecalciferol (D-3) 1,000 UNIT (25MCG) TABLET PO SCH (08:13)
[2022-08-19] MEDS: DilTIAZem CD (24hr) 180 MG CAP.ER.24H PO SCH (08:14)
[2022-08-19] MEDS ORDERED: Furosemide 40 MG/4 ML VIAL IVP SCH (09:00)
[2022-08-19] MEDS: Apixaban 5 MG TABLET PO SCH ×2 (09:38→10:02)
[2022-08-19 14:12] LABS: VBG HCO3 39 mEq/L (21-27); VBG PCO2 90 mmHg (41-51); VBG PH 7.25 pH Units (7.32-7.42); VBG PO2 151 mmHg (25-50)
[2022-08-19] MEDS ORDERED: 0.9 % Sodium Chloride 250 ML IV ONE (14:25)
[2022-08-19] MEDS ORDERED: MethylPREDNISolone 40 MG/ML VIAL IVP ONE (15:00)
[2022-08-19 17:47] LABS: ABG Base Excess 7 mEq/L (-2 to 3); ABG HCO3 37 mEq/L (21-27); ABG Oxygen Saturation 91 % (95-98); ABG PCO2 84 mmHg (35-45); ABG PH 7.25 pH Units (7.32-7.45); ABG PO2 76 mmHg (85-104); ABG TCO2 40 mEq/L (20-26); Blood Gas Modality AVAPS; Blood Gas VT 550 cc
[2022-08-19] MEDS: traZODone 50 MG TABLET PO SCH (20:27)
[2022-08-19] MEDS: MethylPREDNISolone 40 MG/ML VIAL IVP SCH (20:27)
[2022-08-19] MEDS: Melatonin 3 MG TABLET PO SCH (20:28)
[2022-08-20 00:53] LABS: ABG Base Excess 6 mEq/L (-2 to 3); ABG HCO3 35 mEq/L (21-27); ABG Oxygen Saturation 89 % (95-98); ABG PCO2 76 mmHg (35-45); ABG PH 7.27 pH Units (7.32-7.45); ABG PO2 67 mmHg (85-104); ABG TCO2 38 mEq/L (20-26)
[2022-08-20] MEDS ORDERED: hydrOXYzine pamoate 25 MG CAPSULE PO PRN (01:10)
[2022-08-20 03:13] LABS: Basophils % 0.2 %; Hemoglobin 12.3 g/dL (12.9-16.9); Immature Granulocytes % 1.4 % (0-4); Lymphocytes # 0.6 K/mcL (0.6-4.6); Lymphocytes % 9.2 %; Mean Corpuscular HGB Conc 30.8 g/dL (31.6-35.5); Mean Corpuscular Hemoglobin 28.3 pg (28.0-33.3); Mean Platelet Volume 10.3 fL (9.4-12.4); Monocytes # 0.3 K/mcL (0.0-1.3); Monocytes % 4.9 %; Neutrophils # 5.3 K/mcL (1.6-8.9); Nucleated Red Blood Cells 0.3 /100 WBC (0); Platelet Count 156 K/mcL (140-400); Red Blood Count 4.35 M/mcL (4.19-5.50); Red Cell Distribution Width 13.3 % (11.5-14.5); Segmented Neutrophils % 84.3 %; White Blood Count 6.3 K/mcL (4.3-11.1)
[2022-08-20 03:34] LABS: Calcium 8.8 mg/dL (8.6-10.3); Potassium 5.1 mEq/L (3.5-5.1)
[2022-08-20] MEDS: Levalbuterol Neb 1.25 MG/3 ML IH SCH ×3 (04:16→11:20)
[2022-08-20] MEDS: Ipratropium Neb 0.5 MG NEBULIZER IH SCH ×3 (04:16→11:19)
[2022-08-20] MEDS: Tiotropium 10 INH DOSE IH SCH (07:39)
[2022-08-20] MEDS: Budesonide/Formoterol 160/4.5 1 PUFF INH IH SCH (07:39)
[2022-08-20] MEDS: DilTIAZem CD (24hr) 180 MG CAP.ER.24H PO SCH (08:34)
[2022-08-20] MEDS: Aspirin Enteric Coated 81 MG Tablet PO SCH (08:34)
[2022-08-20] MEDS: Cholecalciferol (D-3) 1,000 UNIT (25MCG) TABLET PO SCH (08:35)
[2022-08-20] MEDS: Apixaban 5 MG TABLET PO SCH (08:35)
[2022-08-20] MEDS: Metoprolol XL (24 HR) Succ 50 MG TAB.ER.24H PO SCH (08:35)
[2022-08-20] MEDS: *HR* Amiodarone 200 MG TABLET PO SCH (08:35)
[2022-08-20] MEDS: Ascorbic Acid 500 MG TABLET PO SCH (08:35)
[2022-08-20] MEDS: MethylPREDNISolone 40 MG/ML VIAL IVP SCH (08:42)
[2022-08-20 08:47] VITALS: PULSE 92; TEMP 98.6
[2022-08-20] MEDS ORDERED: *HR* Metoprolol 5 MG/5 ML VIAL IVP ONE (08:50)
[2022-08-20] MEDS ORDERED: *HR* Heparin 5,000 UNIT/ML VIAL IVP PRN ×4 (10:09→10:15)
[2022-08-20] MEDS ORDERED: *HR* Heparin 5,000 UNIT/ML VIAL IVP ONE (10:09)
[2022-08-20] MEDS ORDERED: Heparin 25,000UNIT/250ML 1/2NS 25,000 UNIT/250 ML IV.SOLN IVC SCH ×2 (10:15)
[2022-08-20 11:13] VITALS: BP 108/75; O2SAT 97
[2022-08-20 11:52] LABS: INR 2.6; Prothrombin Time 28.4 Seconds (9.4-12.1)
[2022-08-20 11:54] LABS: Activated Partial Thrombo Time 28.4 Seconds (26.0-36.0)
== END 2022-08-20 11:37 | disposition short-term general hospital (02) | DRG 291 ==
LOC: 3BNU 12:24 → EMEROOARM 12:24 → SUATTDRO 15:38 → 3BNU 16:15 → SUATTDRO 08-16 18:19 → 3BNU 08-16 20:22 → 2NNU 08-17 00:02
PROVIDERS: ADMIT Internal Medicine; ATTEND Internal Medicine